=== PATIENT | female | born 1975 | race Caucasian/White ===

== ENCOUNTER 2016-09-07 14:55 | Day surgery (SDC) | payer OTHER ==
[~2016-09-07] VITALS: Ht 180.3 cm; Wt 71.0 kg
[~2016-09-07 14:55] MED LIST: 0.9% Sodium Chloride 1,000 ML IV PRN; ALPR1TAB7 PO; LEVO100T45 PO; OMEP20CA11 PO; Sodium Chloride LOK Flush 10 mL Syringe IV PRN; fentaNYL-PF 50 mCg/mL 2 mL Inj IVPUSH PRN
[2016-09-07 16:02] VITALS: BP 135/89; PULSE 77; RESP 16; O2SAT 98
[2016-09-07 16:46] VITALS: BP 110/63; PULSE 65; RESP 16; O2SAT 99
--- NOTE | 2016-09-07 16:52 | ENDO ---
[address] [address] ENDOSCOPY PROCEDURE PATIENT: PAXTON CAMPBELL : 1975 MR#: [id number] ADMIT: 09/07/2016 JOB ID: [id number] TITLE OF OPERATION: Esophagogastroduodenoscopy (EGD) with biopsy. PREOPERATIVE DIAGNOSIS(ES): Dysphagia and gastroesophageal reflux disease. POSTOPERATIVE DIAGNOSIS(ES): Normal upper endoscopy, status post biopsy. ANESTHESIA: Fentanyl 150 mcg and Versed 8 mg IV administered. COMPLICATIONS: None. BLOOD LOSS: Minimal. DESCRIPTION OF PROCEDURE: After the risks and benefits were explained to the patient, informed consent was obtained. After anesthesia was administered, the upper endoscope was inserted into the mouth, intubated through the esophagus, stomach, and second portion of the duodenum, and the mucosa carefully examined. After the procedure was done, the scope was withdrawn and the procedure terminated. FINDINGS: Upon inspection of the esophagus, the esophagus was normal, without masses, ulcers, or lesions. Z-line located 40 cm from the incisors. Upon entering the stomach, the stomach also appeared normal, without masses, ulcers, or lesions. Retroflexion was normal. The duodenal bulb, first and second portions were normal. Biopsies taken in the antrum and body, and mid and distal esophagus. IMPRESSION: Normal upper endoscopy, status post biopsy. RECOMMENDATION: Await pathology results. Follow up in the GI Clinic as needed.
[2016-09-07 16:56] VITALS: BP 101/58; PULSE 58; RESP 16; O2SAT 99
[2016-09-07 17:04] VITALS: BP 105/65; PULSE 63; RESP 16; O2SAT 100
--- NOTE | 2016-09-10 14:27 | PATH ---
SURGICAL PATHOLOGY Attending Physician:Jose Gross MD CASE STATUS: Signed Out PATIENT NAME: PAXTON CAMPBELL PID: [id number] : 1975 DATE COLLECTED:09/07/2016 00:00 SPECIMEN: 1: Esophagus, Biopsy 2: Esophagus, Biopsy 3: Gastric, Biopsy 4: Stomach, Antrum, Biopsy CLINICAL HISTORY: DYSPHAGIA, NORMAL APPEARING MUCOSA 1). MID ESOPHAGUS BIOPSY, RULE OUT EOSINOPHILIC ESOPHAGITIS 2). DISTAL ESOPHAGUS BIOPSY 3). GASTRIC BODY BIOPSY, RULE OUT H.PYLORI 4). ANTRAL BIOPSY FINAL DIAGNOSIS: 1.MID ESOPHAGUS, BIOPSY: ESOPHAGEAL SQUAMOUS EPITHELIUM WITH MILD CHRONIC ACTIVE ESOPHAGITIS. Negative for eosinophilic esophagitis. Negative for intestinal metaplasia. No evidence of malignancy or dysplasia. 2.DISTAL ESOPHAGUS, BIOPSY: ESOPHAGEAL SQUAMOUS EPITHELIUM WITH MILD CHRONIC ACTIVE ESOPHAGITIS. Negative for eosinophilic esophagitis. Negative for intestinal metaplasia. No evidence of malignancy or dysplasia. 3.GASTRIC BODY, BIOPSY: NORMAL GASTRIC CORPUS. Negative for Helicobacter organisms. Negative for intestinal metaplasia. No evidence of dysplasia or malignancy. 4.GASTRIC ANTRAL BIOPSY: NORMAL GASTRIC ANTRUM. Negative for Helicobacter organisms. Negative for intestinal metaplasia. No evidence of dysplasia or malignancy. ICD10 K20.9 GROSS DESCRIPTION: The specimens are received in formalin, labeled with the patient's name and sublabeled as the following: (1) mid esoph BXs; (2) distal esoph BX; (3) gastric BXs; (4) antral BXs. (1) The specimen consists of multiple fragments of glistening, clear colorless tissue (0.7 x 0.3 by less than 0.1 cm in aggregate). Section code: (1A) tissue. Specimen entirely submitted. (2) The specimen consists of multiple fragments of glistening, clear colorless tissue (0.8 x 0.4 by less than 0.1 cm in aggregate). Section code: (2A) tissue. Specimen entirely submitted. (3) The specimen consists of multiple fragments of lawson-white, glistening, rubbery, semi-translucent tissue (0.7 x 0.5 x 0.2 cm in aggregate). Section code: (3A) tissue. Specimen entirely submitted. (4) The specimen consists of fragment of lawson-white, glistening, rubbery, semi-translucent tissue (0.5 x 0.3 x 0.2 cm). Section code: (4A) tissue. Specimen entirely submitted. ([id number]) MICRO DESCRIPTION: See diagnosis. ICD-9 CODES: CPT CODES: 1: 06936 2: 42107 3: 54712 4: 67851 Electronically Signed Out Cruz Barrera MD [facility] Pathology [facility] [address], [place] [address] Technical component performed at [facility], [address], [place], [address]
== END 2016-09-07 23:59 | disposition home or self-care (01) ==
LOC: END 14:55
PROVIDERS: ATTEND Internal Medicine Gastroenterology
DX: R13.10 Dysphagia, unspecified (principal); K21.9 Gastro-esophageal reflux disease without esophagitis; K20.9 Esophagitis, unspecified; E03.9 Hypothyroidism, unspecified
CPT/HCPCS: 43239; 99153; G0500; J2250; J3010; J7030